=== PATIENT | male | born 1975 | race Caucasian/White ===

== ENCOUNTER 2020-04-20 06:48 | Outpatient (NON) | payer OTHER, SELFPAY ==
[2020-04-20 23:57] LABS: SARS-CoV-2 RNA PCR Negative
== END 2020-04-20 06:49 ==
PROVIDERS: Visit Provider Nurse Practitioner Family
DX: R05 Cough (principal); R09.89 Other specified symptoms and signs involving the circulatory and respiratory systems; Z20.828 Contact with and (suspected) exposure to other viral communicable diseases
CPT/HCPCS: 87635; C9803; U0003